=== PATIENT | female | born 1960 | race American Indian/Alaskan Native ===

== ENCOUNTER 2018-05-05 05:49 | Day surgery (SDC) | payer OTHER ==
--- NOTE | 2018-05-04 17:36 | History and Physical Report ---
History of Present Illness Date of examination: 05/03/18 Chief complaint: Vulvar Pain History of present illness: Pt is 57 year old [place] female who presents with left vulvar pain and left Bartholin gland cyst on exam. She desires surgical management. Past History Past Medical History: other (Obesity ) Past Surgical History: gastric bypass, other (abdominoplasty) Family/Genetic History: diabetes, other (renal disease, Parkinson's Disease ) Social history: no significant social history Medications and Allergies Allergies Allergy/AdvReac Type Severity Reaction Status Date / Time red dye Allergy Whelps, Verified 04/30/18 14:26 itching yellow dye Allergy Whelps, Verified 04/30/18 14:26 itching Home Medications Medication Instructions Recorded Confirmed Last Taken Type No Known Home Medications [No 04/30/18 04/30/18 Unknown History Reported Home Medications] Review of Systems All systems: negative - Physical Exam Breasts: Positive: deferred Cardiovascular: Regular rate Lungs: Positive: Clear to auscultation Abdomen: Positive: soft (obese) Genitourinary (Female): Positive: other (left Bartholin gland cyst ) Extremities: Positive: edema (trace) Results All other labs normal. Assessment and Plan A: Vulvar Pain Left Bartholin Gland Cyst P: Proceed with exam under anesthesia, left Bartholin gland cyst excision and other indicated procedures
[~2018-05-05 05:49] MED LIST: ANCEF/STERILE WATER 2 GM/20 ML 2 GM/20 ML SYRINGE IV NR; NACL 0.9% 1000 ML 1,000 ML IV SCH
[2018-05-05] MEDS ORDERED: XYLOCAINE MPF 2% ONE (07:16)
[2018-05-05] MEDS ORDERED: DILAUDID ONE (07:16)
[2018-05-05] MEDS ORDERED: ROBINUL ONE (07:16)
[2018-05-05] MEDS ORDERED: DIPRIVAN 10 MG/ML IV ONE ×2 (07:17→08:04)
[2018-05-05 07:29] LABS: Hematocrit 39.3 % (30.3-42.9); Mean Corpuscular HGB Conc 33 % (30-34); Mean Corpuscular Hemoglobin 32 pg (28-32); Mean Corpuscular Volume 96 fl (79-97); Platelet Count 204 K/mm3 (140-440); Red Blood Count 4.08 M/mm3 (3.65-5.03); Red Cell Distribution Width 13.5 % (13.2-15.2)
--- NOTE | 2018-05-05 07:48 | Anesthesia Consultation ---
Anesthesia Consult and Med Hx Date of service: 05/05/18 - Airway Anesthetic Teeth Evaluation: Good (missing one anterior molar) ROM Head & Neck: Adequate Mental/Hyoid Distance: Adequate Mallampati Class: Class I Intubation Access Assessment: Good - Pulmonary Exam CTA: Yes - Cardiac Exam Cardiac Exam: RRR - Pre-Operative Health Status ASA Pre-Surgery Classification: ASA2 Proposed Anesthetic Plan: General - Pre-Anesthesia Comment Pre-Anesthesia Comments: Patient tolerates 6 METs. Exercises regularly. No chest pain or SOb. NO cold or flu. No N/V - Pulmonary Hx Smoking: No Hx Asthma: No - Cardiovascular System Hx Hypertension: No Hx Coronary Artery Disease: No - Central Nervous System Hx Psychiatric Problems: No - Endocrine Hx Renal Disease: No Hx Cirrhosis: No Hx Liver Disease: No - Hematic Hx Anemia: No - Other Systems Hx Alcohol Use: No Hx Substance Use: No Hx Cancer: No Hx Obesity: Yes
[2018-05-05] MEDS ORDERED: NARCAN 0.4 MG/1 ML IV PRN (07:49)
[2018-05-05] MEDS ORDERED: DILAUDID IV PRN (07:49)
[2018-05-05] MEDS ORDERED: ZOFRAN IV PRN (07:49)
[2018-05-05] MEDS ORDERED: DEMEROL IV PRN (07:49)
[2018-05-05] MEDS ORDERED: TYLENOL PO PRN (07:49)
[2018-05-05] MEDS ORDERED: TORADOL IV PRN (07:49)
--- NOTE | 2018-05-05 07:49 | Anesthesia Day of Surgery ---
Anesthesia Day of Surgery - Day of Surgery Patient Examined: Yes Patient H&P Reviewed: Yes Patient is NPO: Yes
[2018-05-05] MEDS ORDERED: DECADRON ONE (07:51)
[2018-05-05] MEDS ORDERED: XYLOCAINE 1%/ EPI 1:100,000 INFILTRATI ONE ×2 (08:06→08:40)
[2018-05-05] MEDS ORDERED: NACL 0.9% IR ONE (08:40)
--- NOTE | 2018-05-05 09:31 | Operative Report ---
Operative Report Operative Report: Date of procedure: 05/05/2018 Preoperative diagnosis: 1) Vulvar pain 2) Left Bartholin gland cyst Postoperative diagnosis: Same Procedure: 1) Exam under anesthesia 2) Left Bartholin gland excision Surgeon: Denise Dickson M.D. Coiler: Soraya Sinha M.D. Anesthesia: Gen. with LMA Findings: 1) 4-5 cm left Bartholin Gland Abscess filled with brown liquid Estimated blood loss: 50 mL IV fluid: 1000 mL Urine output: 100 mL, clear prior to the procedure Specimen: Aerobic and anaerobic cultures as well as Bartholin gland to pathology Drains: None Complications: None. Counts correct 2 Disposition: Stable to PACU Indication for procedure: The patient is a 57-year-old [place] female 2 para 2 who presents with recurrent vulvar pain and left Bartholin gland cyst on examination. The patient desires surgical management. Operation detail: After the risks, benefits, alternatives, and complications of the procedure were explained to the patient, she gave informed consent for the procedure. She was subsequently taken to the operating room with IV noted to be running well and placement dorsal supine position. SCDs were noted to be in place and functioning prior to induction. Gen. anesthesia was then induced without difficulty. The patient was then placed in the dorsal lithotomy position and prepped and draped in normal sterile fashion. A timeout was performed. An exam under anesthesia revealed a left Bartholin cyst approximately 4-5 cm in diameter, tense. A red rubber catheter was then used to drain the bladder of 100 mls of clear urine. At this time a dilute lidocaine with epinephrine solution was injected along the vaginal mucosa overlying the Bartholin land cyst. A #13 scalpel was used to make an incision overlying the cyst. Allis clamps were used for retraction of the vaginal mucosa. A combination of needle point cautery and blunt dissection were used to dissect and excise the Bartholin gland. During dissection the cyst was entered with egress of brown liquid which was sent for anaerobic and aerobic cultures. Once the Bartholin gland was excised and was sent to pathology. The remaining defect was inspected for hemostasis with use of needlepoint cautery as needed. Surgicel was placed in the defect for additional hemostasis. The deep layers of tissue were reapproximated in an interrupted fashion with two layers of 3-0 Vicryl. The vaginal mucosa was reapproximated with 4-0 Vicryl in interrupted fashion. Hemostasis was noted. At this time the procedure was ended. The patient was replaced in the dorsal supine position and extubated without difficulty. She has subsequently taken to the PACU in stable condition. The patient tolerated the procedure well. All instrument, lap and needle counts were correct 2.
--- NOTE | 2018-05-05 09:36 | Short Stay Summary ---
Short Stay Documentation Date of service: 05/05/18 - History H&P: dictated Social history: no significant social history - Allergies and Medications Current Medications: Allergies red dye Allergy (Verified 04/30/18 14:26) Whelps, itching yellow dye Allergy (Verified 04/30/18 14:26) Whelps, itching Home Medications Medication Instructions Recorded Confirmed Last Taken Type No Known Home Medications [No 04/30/18 04/30/18 Unknown History Reported Home Medications] Active Medications Acetaminophen (Tylenol) 650 mg PO ONCE PRN PRN Reason: Pain, Mild (1-3) Stop: 05/05/18 15:00 Hydromorphone HCl (Dilaudid) 0.25 mg IV Q10MIN PRN PRN Reason: Pain, Moderate (4-6) Stop: 05/05/18 20:00 Hydromorphone HCl (Dilaudid) 0.5 mg IV Q10MIN PRN PRN Reason: Pain , Severe (7-10) Stop: 05/05/18 22:00 Cefazolin Sodium (Ancef/Sterile Water 2 Gm/20 Ml) 2 gm in 20 mls @ 80 mls/hr IV PREOP NR; Protocol Stop: 05/05/18 23:59 Sodium Chloride (Nacl 0.9% 1000 Ml) 1,000 mls @ 75 mls/hr IV DIRECT SASHA Last Admin: 05/05/18 07:10 Dose: 75 mls/hr Ketorolac Tromethamine (Toradol) 30 mg IV ONCE PRN PRN Reason: Pain, Moderate (4-6) Stop: 05/05/18 15:00 Meperidine HCl (Demerol) 25 mg IV ONCE PRN PRN Reason: Shivering Stop: 05/05/18 20:00 Naloxone HCl (Narcan 0.4 Mg/1 Ml) 0.1 mg IV Q2MIN PRN PRN Reason: Res Rate </= 8 or 02 SAT < 92% Ondansetron HCl (Zofran) 4 mg IV ONCE PRN PRN Reason: Nausea And Vomiting Stop: 05/05/18 15:00 - Physical exam Breasts: deferred - Brief post op/procedure progress note Date of procedure: 05/05/18 Pre-op diagnosis: Vulvar Pain, Left Bartholin Gland Cyst Post-op diagnosis: same Procedure: Exam Under Anesthesia Left Bartholin Gland Excision Anesthesia: GETA (with LMA ) Findings: 1) 4-5 cm left Bartholin Gland Abscess filled with brown liquid Surgeon: HERMAN DICKSON Salad [employer] Clerk: MARQUISE CARPIO Estimated blood loss: 50-100ml (50 mL) Pathology: list (anaerobic and aerobic cultures, Bartholin Cyst) Specimen disposition: to lab Condition: stable - Hospital course Hospital course: Pt underwent exam under anesthesia and left Bartholin gland excision which she tolerated well. She was observed in the PACU until she met discharge criteria. She'll follow-up in [address] Dickson. - Disposition Condition at discharge: Stable Disposition: - TO HOME OR SELFCARE - Discharge Diagnoses (1) Cyst of left Bartholin's gland duct Status: Acute (2) Vulvar pain Status: Acute Short Stay Discharge Plan Activity: other (Nothing in vagina, no tub baths x 4 wks ) Weight Bearing Status: Full Weight Bearing Diet: regular Wound: keep clean and dry, per your surgeon's advice Follow up with: QUITA GOLDSMITH MD [Primary Care Provider] - 7 Days HERMAN DICKSON MD [Staff Physician] - 7 Days
[2018-05-05] MEDS: DILAUDID IV PRN ×2 (09:50→10:00)
[2018-05-05 16:32] VITALS: BP 132/69
--- NOTE | 2018-05-06 07:16 | Post Anesthesia Evaluation ---
- Post Anesthesia Evaluation Patient Participated: Yes Airway Patent: Yes Stable Respiratory Function: Yes Nausea/Vomiting: No Temp > 96.8F: Yes Pain Manageable: Yes Adequeate Hydration: Yes Anesthesia Complications: No Block Receding Appropriately: Not Applicable Patient on Ventilator: No
== END 2018-05-05 12:30 | disposition home or self-care (01) ==
LOC: OR 05:49
PROVIDERS: ATTEND Obstetrics & Gynecology
DX: N75.0 Cyst of Bartholin's gland (principal); N75.8 Other diseases of Bartholin's gland; M19.90 Unspecified osteoarthritis, unspecified site; E66.01 Morbid (severe) obesity due to excess calories; Z68.31 Body mass index [BMI] 31.0-31.9, adult; Z91.041 Radiographic dye allergy status; Z98.84 Bariatric surgery status; N75.1 Abscess of Bartholin's gland; Z98.890 Other specified postprocedural states
CPT/HCPCS: 36415; 56740; 85027; 86850; 86900; 86901; 87075; 87116; 88304; J0690; J1100; J1170; J2704; J7030